=== PATIENT | male | born 1985 | race Caucasian/White ===

== ENCOUNTER 2023-09-02 08:48 | Emergency (ER) | payer OTHER, SELFPAY ==
[2023-09-02 09:00] VITALS: BP 159/94; PULSE 98; RESP 18; TEMP 36.6; O2SAT 97; BMI 41.0
--- NOTE | 2023-09-02 09:19 | ED_ITS ---
HPI - General Adult General Chief complaint: Shoulder Injury/Pain Stated complaint: Shoulder pain Time Seen by Provider: 09/02/23 09:10 Source: patient and rehabilitator Mode of arrival: ambulatory Limitations: language barrier History of Present Illness HPI narrative: Patient is a 38-year-old male who presents for evaluation of right shoulder pain which he says has been present for about 3 weeks but got worse yesterday. It hurts diffusely in the anterior shoulder, worse with movement. No swelling, no specific injury, no radiating pain. He works in a restaurant. He has difficulty abducting the shoulder due to pain. Related Data Home Medications Medication Instructions Recorded Confirmed No Known Home Medications 09/02/23 09/02/23 Allergies Allergy/AdvReac Type Severity Reaction Status Date / Time No Known Drug Allergies Allergy Verified 09/02/23 09:06 [facility] Social History Smoking Status: Never smoker Do you use any of these nicotine containing products: None Second hand tobacco smoke exposure: No How often do you have a drink containing alcohol: never How often do you have six or more drinks on one occasion: Never AUDIT-C Alcohol total score: 0 Non-prescribed substance use: denies use service: No Exam Narrative: Exam Narrative: Vital signs reviewed In general, alert, nontoxic male, looks comfortable. Extremities: Examination of the right shoulder shows it to be normal in appearance. He has some mild tenderness throughout the anterior shoulder. passive range of motion is less painful than active, I am able to abduct to 180? and then he was able to lower slowly from that position, but it is difficult for him to actively abduct the shoulder. Biswas Ace test causes only minimal discomfort. Neurologic: Strength is 5 of 5 distally in bilateral upper extremities. More difficult to test at the shoulder secondary to pain. Skin: Warm dry well perfused. No rash or lesion. Const: Vital Signs, click to edit/add: Vital Signs - 24 hr 09/02/23 09:00 Temperature 98 F Pulse Rate [Pulse Oximeter] 98 Respiratory Rate 18 Blood Pressure [Le ft Upper Arm] 159/94 H Pulse Oximetry 97 Oxygen Delivery Me thod Room Air Documenting provider has reviewed patient's vital signs: yes Course Course ED Course: exam is somewhat suggestive of a rotator cuff problem although no evidence of complete tear. Impingement syndrome is a possibility as well. Will do x-ray to be abnormalities, then discussed plus or minus sling, anti-inflammatory regimen, orthopedic follow-up. X-rays by my review are negative for significant findings, radiology notes some mild degenerative changes at the AC joint, no other acute findings. Plan as above. Return for worsening. Advised range of motion several times a day to avoid adhesive capsulitis. Vital Signs Vital signs: Initial Vital Signs Temperature 98 F 09/02/23 09:00 Temperature Source Temporal Artery Scan 09/02/23 09:00 Pulse Rate 98 09/02/23 09:00 Respiratory Rate 18 09/02/23 09:00 Blood Pressure 159/94 H 09/02/23 09:00 Blood Pressure Mean 115 H 09/02/23 09:00 Blood Pressure Position Sitting 09/02/23 09:00 Pulse Oximetry 97 09/02/23 09:00 Oxygen Delivery Method Room Air 09/02/23 09:00 Vital Signs Temperature 98 F 09/02/23 09:00 Pulse Rate 98 09/02/23 09:00 Respiratory Rate 18 09/02/23 09:00 Blood Pressure 159/94 H 09/02/23 09:00 Pulse Oximetry 97 09/02/23 09:00 Oxygen Delivery Method Room Air 09/02/23 09:00 Temperature 98 F 09/02/23 09:00 Pulse Rate 98 09/02/23 09:00 Respiratory Rate 18 09/02/23 09:00 Blood Pressure 159/94 H 09/02/23 09:00 Pulse Oximetry 97 09/02/23 09:00 Oxygen Delivery Method Room Air 09/02/23 09:00 Discharge Plan Discharge Clinical Impression: Acute pain of right shoulder Patient Disposition: Home, Self-Care Condition: Stable Instructions: Shoulder Pain (ED) Additional Instructions: Ibuprofen 400 mg plus Tylenol 1000 mg 3 times daily with food for the next several days to week. Orthopedic follow-up as scheduled. If you choose to use the sling, make sure to remove it and gently range your shoulder a few times a day to avoid getting a frozen shoulder. Prescriptions: No Action No Known Home Medications Follow Up/Referrals: Provider,Not a Local [Primary Care Provider] - Stand Alone Forms: [employer] Info Instructions
--- NOTE | 2023-09-02 09:19 | CRLHL7_ITS ---
For Patients: As a result of the Century Cures Act, medical imaging exams and procedure reports are released immediately into your electronic medical record. You may view this report before your referring provider. If you have questions, please contact your health care provider. Indication: Pain around surgical neck of humerus. Technique: Two views of the right shoulder. Comparison: None available. Findings: Alignment is anatomic. There is mild acromioclavicular joint space narrowing and marginal osteophytes. No acute fracture is seen. No suspicious calcifications to suggest calcific tendinopathy. Visualized right lung is hypoinflated without discrete consolidation. Impression: No acute fracture. Dictated by Clara Amaya MD @ 09/02/2023 10:18:51 AM (Electronically Signed)
--- NOTE | 2023-09-02 11:01 | ED.NURSE ---
Pt declined wanted a sling for arm.
== END 2023-09-02 11:02 | disposition home or self-care (01) ==
PROVIDERS: Emergency Provider Emergency Medicine
DX: M25.511 Pain in right shoulder (principal)
CPT/HCPCS: 73030; 99283